=== PATIENT | male | born 1980 | race Caucasian/White ===

== ENCOUNTER 2023-04-21 09:43 | Emergency (ER) | payer OTHER ==
[~2023-04-21] VITALS: Ht 175.3 cm; Wt 95.3 kg
[2023-04-21 09:47] VITALS: BP 132/94
--- NOTE | 2023-04-21 10:07 | NUR ---
HEADACHE, LEFT LLQ PAIN X 3 DAYS, SUBJECTIVE FEVER.
[2023-04-21 10:34] LABS: BASOPHILS # (AUTO) 0.1 K/uL (0.00-0.22); BASOPHILS % (AUTO) 0.8 % (0.0-2.0); HEMATOCRIT 45.7 % (36-52); HEMOGLOBIN 16.1 g/dL (12.0-18.0); LYMPHOCYTES # (AUTO) 1.4 K/uL (2.0-11.5); MEAN CORPUSCULAR HEMOGLOBIN 32 pg (27-31); MEAN CORPUSCULAR HGB CONC 35 g/dL (33-37); MEAN CORPUSCULAR VOLUME 89.9 fL (80-94); MONOCYTES # (AUTO) 0.6 K/uL (0.8-1.0); NEUTROPHILS # (AUTO) 4.6 K/uL (1.8-7.7); NEUTROPHILS % (AUTO) 69.2 % (42.2-75.2); PLATELET COUNT (AUTO) 199 K/uL (140-450); RED BLOOD CELL COUNT(AUTO) 5.08 MIL/uL (4.20-6.10); RED CELL DISTRIBUTION WIDTH 13.3 % (11.6-13.7); WHITE BLOOD COUNT (AUTO) 6.7 K/uL (4.8-10.8)
[2023-04-21] MEDS ORDERED: NACL 0.9% 1,000 ML IV ONE (10:35)
[2023-04-21] MEDS ORDERED: LIDOCAINE 5% 1 EA PATCH TP SCH (10:35)
[2023-04-21] MEDS ORDERED: KETOROLAC 30 MG/ML VIAL IVP ONE (10:35)
[2023-04-21] MEDS ORDERED: ACETAMINOPHEN EXTRA STRENGTH 500 MG TAB PO ONE (10:35)
--- NOTE | 2023-04-21 11:10 | NUR ---
BED [address]
[2023-04-21 11:30] LABS: APPEARANCE,URINE CLEAR (CLEAR); BILIRUBIN,URINE NEGATIVE (NEGATIVE); BLOOD, URINE NEGATIVE (NEGATIVE); COLOR,URINE YELLOW (YELLOW); LEUKOCYTE ESTERASE ,URINE NEGATIVE (NEGATIVE); NITRITE, URINE NEGATIVE (NEGATIVE); UGLUCOSE NEGATIVE (NEGATIVE)
[2023-04-21 11:56] LABS: BARBITURATE, URINE NEGATIVE ng/ml (NEG <=200); BENZODIAZEPINE, URINE NEGATIVE ng/mL (NEG <=200)
[2023-04-21 11:57] LABS: CANNABINOID, URINE NEGATIVE ng/mL (NEG <=50); COCAINE, URINE NEGATIVE ng/mL (NEG <=300); OPIATE, URINE NEGATIVE ng/mL (NEG <=2000); PHENCYCLIDINE SCREEN,URINE NEGATIVE ng/mL (NEG <=25)
[2023-04-21] MEDS ORDERED: ACET-10509 PO (12:56)
[2023-04-21] MEDS ORDERED: IBUP-2213 PO (12:56)
[2023-04-21 13:55] LABS: ALBUMIN 3.5 g/dL (3.4-5.0); ANION GAP 15.2 (8-16); CARBON DIOXIDE 22.6 mmol/L (21-32); CREATININE 0.9 mg/dL (0.6-1.3); POTASSIUM 3.8 mmol/L (3.5-5.1); TOTAL BILIRUBIN 0.4 mg/dL (0.0-1.0)
--- NOTE | 2023-04-21 14:05 | NUR ---
Patient discharged with v/s stable. Written and verbal after care instructions given and explained. Patient alert, oriented and verbalized understanding of instructions. Ambulatory with steady gait. All questions addressed prior to discharge. ID band removed. Patient advised to follow up with PMD. Rx of ACETAMINOPHEN, IBUPROFEN given. Patient educated on indication of medication including possible reaction and side effects. Opportunity to ask questions provided and answered.
[2023-04-21 14:06] VITALS: BP 122/88
== END 2023-04-21 14:05 | disposition home or self-care (01) ==
LOC: MED 09:43
DX: R10.9 Unspecified abdominal pain (principal); R51.9 Headache, unspecified; R16.0 Hepatomegaly, not elsewhere classified; F15.90 Other stimulant use, unspecified, uncomplicated; I10 Essential (primary) hypertension; K56.699 Other intestinal obstruction unspecified as to partial versus complete obstruction; Z79.899 Other long term (current) drug therapy; Z98.890 Other specified postprocedural states
CPT/HCPCS: 36415; 71101; 74176; 80053; 80305; 81003; 83605; 83690; 85025; 87040; 96361; 96374; 99285; J1885; J7030

== ENCOUNTER 2023-05-06 11:37 | Emergency (ER) | payer OTHER ==
[~2023-05-06] VITALS: Ht 175.3 cm; Wt 95.3 kg
[~2023-05-06 11:37] MED LIST: ACET-10509 PO; IBUP-2213 PO
[2023-05-06 11:41] VITALS: BP 133/86; PULSE 105; RESP 18; TEMP 98.3; O2SAT 96
--- NOTE | 2023-05-06 11:45 | NUR ---
PT AMBULATORY TO BED 06
[2023-05-06 12:05] VITALS: O2SAT 96
--- NOTE | 2023-05-06 12:09 | NUR ---
MD VARMA AT BEDSIDE FOR EVALUATION
--- NOTE | 2023-05-06 12:24 | NUR ---
Patient discharged with v/s stable. Written and verbal after care instructions FOR HEPATOMEGALY given and explained. Patient verbalized understanding. Ambulatory with steady gait. All questions addressed prior to discharge. Advised to follow up with PMD.
--- NOTE | 2023-05-06 12:28 | NUR ---
The patient's care was reviewed and supervised by PATRICIA HOOD RN.
== END 2023-05-06 12:24 | disposition home or self-care (01) ==
LOC: MED 11:37
DX: R16.0 Hepatomegaly, not elsewhere classified (principal); R05.9 Cough, unspecified; Z79.899 Other long term (current) drug therapy
CPT/HCPCS: 99283